=== PATIENT | female | born 1950 | race Caucasian/White ===

== ENCOUNTER 2024-08-03 21:07 | Inpatient (IN) | payer MEDICARE, OTHER ==
[~2024-08-03] VITALS: Ht 152.4 cm; Wt 55.8 kg
[2024-08-03 21:28] LABS: BASOPHILS % (AUTO) 0.4 % (0.0-2.0); EOSINOPHILS # (AUTO) 0.1 K/uL (0.0-0.7); EOSINOPHILS % (AUTO) 1.2 % (0.0-7.0); HEMATOCRIT 31.1 % (31.2-41.9); LYMPHOCYTES # (AUTO) 1.2 K/uL (0.8-4.8); LYMPHOCYTES % (AUTO) 18.3 % (20.5-51.5); MEAN CORPUSCULAR HEMOGLOBIN 31.4 uug (24.7-32.8); MEAN CORPUSCULAR HGB CONC 32 g/dL (32.3-35.6); MEAN CORPUSCULAR VOLUME 97.4 fL (75.5-95.3); MONOCYTES # (AUTO) 0.8 K/uL (0.1-1.30); MONOCYTES % (AUTO) 11.5 % (0.0-11.0); NEUTROPHILS # (AUTO) 4.5 K/uL (1.8-8.9); NEUTROPHILS % (AUTO) 68.6 % (38.5-71.5); PLATELET COUNT (AUTO) 299 K/uL (179-408); RED CELL DISTRIBUTION WIDTH 15.7 % (12.3-17.7); WHITE BLOOD COUNT (AUTO) 6.5 K/uL (3.8-11.8)
[2024-08-03 21:29] LABS: DIFFERENTIAL COMMENT 1
[2024-08-03 21:40] LABS: ALANINE AMINOTRANSFERASE 16 U/L (14-59); ALBUMIN 3.3 g/dL (3.4-5.0); ALKALINE PHOSPHATASE 65 U/L (50-136); ASPARTATE AMINOTRANSFERASE 23 U/L (15-37); BILIRUBIN,DIRECT 0.2 mg/dL (0.0-0.2); BILIRUBIN,TOTAL 0.7 mg/dL (0.2-1.0); CALCIUM 9.3 mg/dL (8.5-10.1); CARBON DIOXIDE 17 mmol/L (21-32); CHLORIDE 107 mmol/L (98-107); CREATININE 0.8 mg/dL (0.6-1.3); GLUCOSE 109 mg/dL (74-106); POTASSIUM 3.1 mmol/L (3.5-5.1); SODIUM SERUM 143 mmol/L (136-145); UREA NITROGEN, BLOOD 3 mg/dL (7-18)
[2024-08-03 21:48] LABS: THYROID STIMULATING HORMONE 2.422 mIU/mL (0.358-3.740)
[2024-08-03] MEDS ORDERED: KETOROLAC TROMETHAMINE 15 MG INJ ONE (23:05)
[2024-08-03] MEDS ORDERED: POTASSIUM CHLORIDE 20 MEQ TAB.PRT.SR ONE (23:05)
[2024-08-03] MEDS: KETOROLAC TROMETHAMINE 15 MG INJ IM ONE (23:30)
[2024-08-03] MEDS: POTASSIUM CHLORIDE 20 MEQ TAB.PRT.SR PO ONE (23:30)
[2024-08-04 00:58] LABS: *BILIRUBIN,URIN 2+ (NEGATIVE); *BLOOD, URINE NEGATIVE (NEGATIVE); *CLARITY,URINE CLEAR (CLEAR); *COLOR,URINE YELLOW (YELLOW); *KETONES,URINE 4+ (NEGATIVE); *PROTEIN,URINE NEGATIVE (NEGATIVE); *UROBILINOGEN,URINE 0.2 E.U./dl (NORMAL); LEUKOCYTE ESTERASE ,URINE NEGATIVE (NEGATIVE); NITRITE, URINE NEGATIVE (NEGATIVE); UGLUCOSE NEGATIVE (NEGATIVE)
[2024-08-04] MEDS ORDERED: HYDR-3980 PO (01:04)
[2024-08-04] MEDS ORDERED: ZOLP10TA2 PO (01:04)
[2024-08-04] MEDS ORDERED: ALPR1TAB2 PO (01:04)
[2024-08-04 01:11] LABS: *AMPHETAMINE, URINE NEGATIVE (NEGATIVE); *BARBITURATE, URINE NEGATIVE (NEGATIVE); *BENZODIAZEPINE, URINE POSITIVE (NEGATIVE); *CANNABINOID, URINE NEGATIVE (NEGATIVE); *COCCAINE, URINE NEGATIVE (NEGATIVE); *OPIATE, URINE POSITIVE (NEGATIVE); *PHENCYCLIDINE SCREEN,URINE NEGATIVE (NEGATIVE); FENTANYL, URINE NEGATIVE (NEGATIVE)
[2024-08-04] MEDS: IV NORMAL SALINE 1000 ML BAG IV ONE (01:13)
[2024-08-04] MEDS ORDERED: ALPRAZOLAM 0.5 MG TABLET ONE (02:25)
[2024-08-04] MEDS: ALPRAZOLAM 0.25 MG TABLET PO ONE (02:26)
[2024-08-04] MEDS ORDERED: MAGNESIUM HYDROXIDE 30 ML LIQUID UDC PO PRN (03:30)
[2024-08-04] MEDS ORDERED: TEMAZEPAM 7.5 MG CAPSULE PO PRN (03:30)
[2024-08-04] MEDS ORDERED: LORAZEPAM 0.5 MG TABLET PO PRN (03:30)
[2024-08-04] MEDS ORDERED: MAG HYDROX/AL HYDROX/SIMETH 30 ML LIQUID UDC PO PRN (03:30)
[2024-08-04] MEDS: LORAZEPAM 0.5 MG TABLET PO PRN (04:10)
[2024-08-04 07:47] VITALS: BP 141/58; TEMP 98; O2SAT 100
[2024-08-04] MEDS: ACETAMINOPHEN 325 MG TABLET PO PRN (10:37)
[2024-08-04] MEDS ORDERED: HYDROCODONE/APAP 10-325 MG TABLET PO PRN (13:30)
[2024-08-04] MEDS ORDERED: GABA100C PO (13:51)
[2024-08-04] MEDS ORDERED: GABA300C PO (13:51)
[2024-08-04] MEDS ORDERED: ENOX40DI SQ (13:57)
[2024-08-04] MEDS ORDERED: OMEP20CA15 PO (13:59)
[2024-08-04] MEDS ORDERED: MAGN400O6 PO (13:59)
[2024-08-04] MEDS ORDERED: MAG-55 PO (14:00)
[2024-08-04] MEDS ORDERED: DICL100G31 TP (14:01)
[2024-08-04] MEDS: THIAMINE HCL 100 MG TABLET PO SCH (14:18)
[2024-08-04 15:16] VITALS: BP 114/60; TEMP 98; O2SAT 98
[2024-08-04] MEDS: ALPRAZOLAM 0.5 MG TABLET PO SCH ×2 (15:42→22:50)
[2024-08-04] MEDS: GABAPENTIN 100 MG CAPSULE PO SCH (15:42)
[2024-08-04 20:00] VITALS: BP 136/66; TEMP 98.3; O2SAT 98
[2024-08-05 06:07] LABS: FOLATE (FOLIC ACID), SERUM 6.4 ng/mL (>3.0)
[2024-08-05 07:44] VITALS: BP 102/53; TEMP 98.2; O2SAT 99
[2024-08-05] MEDS ORDERED: THIAMINE HCL 100 MG TABLET PO SCH (09:00)
[2024-08-05] MEDS ORDERED: MAGNESIUM HYDROXIDE 30 ML LIQUID UDC PO PRN (14:00)
[2024-08-05 15:56] VITALS: BP 103/76; TEMP 98.2; O2SAT 100
[2024-08-05] MEDS: TRAMADOL HCL 50 MG TABLET PO PRN (18:23)
[2024-08-05 19:47] VITALS: BP 109/72; TEMP 98.3; O2SAT 100
[2024-08-05] MEDS: MIRTAZAPINE 15 MG TABLET PO SCH (20:24)
[2024-08-05] MEDS: GABAPENTIN 300 MG CAPSULE PO SCH (20:25)
[2024-08-05] MEDS: CHLORDIAZEPOXIDE HCL 25 MG CAPSULE PO PRN (22:09)
[2024-08-06] MEDS: PANTOPRAZOLE SODIUM 40 MG TABLET.DR PO SCH (06:22)
[2024-08-06 08:10] VITALS: BP 141/57; TEMP 98.1; O2SAT 98
[2024-08-06] MEDS ORDERED: Medication Not On Formulary EA (Omeprazole 20 MG) PO SCH (09:00)
[2024-08-06 16:39] VITALS: BP 138/61; TEMP 98; O2SAT 98
[2024-08-06 20:46] VITALS: BP 112/50; TEMP 98; O2SAT 94
[2024-08-06] MEDS: MELATONIN 3 MG TABLET PO SCH (21:09)
[2024-08-07 08:08] VITALS: BP 146/81; TEMP 98; O2SAT 98
[2024-08-07 08:57] VITALS: BP 146/81; TEMP 98; O2SAT 100
[2024-08-07] MEDS: DIVALPROEX 125 MG TABLET.DR PO SCH (16:41)
[2024-08-07 16:57] VITALS: BP 137/84; TEMP 97.9; O2SAT 100
[2024-08-07 19:53] VITALS: BP 123/67; TEMP 98.2; O2SAT 100
[2024-08-08 08:32] VITALS: BP 129/72; TEMP 98.2; O2SAT 99
[2024-08-08 15:45] VITALS: BP 103/48; TEMP 98; O2SAT 94
[2024-08-08 20:56] VITALS: BP 118/80; TEMP 98.3; O2SAT 96
[2024-08-09 08:13] VITALS: BP 124/79; TEMP 97.7; O2SAT 97
[2024-08-09] MEDS: DIVALPROEX 125 MG TABLET.DR PO SCH (12:16)
[2024-08-09] MEDS: ALPRAZOLAM 0.25 MG TABLET PO SCH (12:16)
[2024-08-09 16:15] VITALS: BP 127/58; TEMP 97.9; O2SAT 98
[2024-08-09] MEDS: ALPRAZOLAM 0.5 MG TABLET PO SCH (16:21)
[2024-08-09 19:34] VITALS: BP 131/59; TEMP 97.6; O2SAT 97
[2024-08-10 08:12] VITALS: BP 142/91; TEMP 97.4; O2SAT 99
[2024-08-10 16:08] VITALS: BP 109/57; TEMP 98.1; O2SAT 98
[2024-08-10 16:26] VITALS: BP 109/57; TEMP 98.1; O2SAT 98
[2024-08-10] MEDS: OLANZAPINE 10 MG VIAL IM ONE (17:00)
[2024-08-10 20:00] VITALS: BP 106/60; TEMP 97.9; O2SAT 98
[2024-08-11 08:08] VITALS: BP 112/71; TEMP 98.5; O2SAT 98
[2024-08-11 16:10] VITALS: BP 97/71; TEMP 97.9; O2SAT 98
[2024-08-11] MEDS: DIVALPROEX 250 MG TABLET.DR PO SCH (16:51)
[2024-08-11] MEDS ORDERED: DIVALPROEX 125 MG TABLET.DR PO SCH (17:00)
[2024-08-11] MEDS ORDERED: DIVALPROEX 250 MG TABLET.DR PO SCH (17:00)
[2024-08-11] MEDS: ENSURE ENLIVE (VAN) 240 ML LIQUID PO SCH (17:19)
[2024-08-11 19:56] VITALS: BP 120/55; TEMP 98.9; O2SAT 99
[2024-08-12 08:05] VITALS: BP 136/58; TEMP 98; O2SAT 98
[2024-08-12 15:07] VITALS: BP 119/50; TEMP 98; O2SAT 96
[2024-08-12] MEDS: ALPRAZOLAM 0.25 MG TABLET PO SCH (17:13)
[2024-08-12 19:53] VITALS: BP 127/53; TEMP 98.1; O2SAT 100
[2024-08-13 07:39] VITALS: BP 131/82; TEMP 98; O2SAT 99
[2024-08-13 15:44] VITALS: BP 129/69; TEMP 98; O2SAT 99
[2024-08-13 19:35] VITALS: BP 145/55; TEMP 98.2; O2SAT 97
[2024-08-14 06:50] LABS: BASOPHILS % (AUTO) 0.6 % (0.0-2.0); EOSINOPHILS # (AUTO) 0.3 K/uL (0.0-0.7); EOSINOPHILS % (AUTO) 3.9 % (0.0-7.0); HEMATOCRIT 28.4 % (31.2-41.9); HEMOGLOBIN 9.3 g/dL (10.9-14.3); LYMPHOCYTES # (AUTO) 2.8 K/uL (0.8-4.8); LYMPHOCYTES % (AUTO) 35.5 % (20.5-51.5); MEAN CORPUSCULAR HEMOGLOBIN 31.2 uug (24.7-32.8); MEAN CORPUSCULAR HGB CONC 33 g/dL (32.3-35.6); MEAN CORPUSCULAR VOLUME 95.1 fL (75.5-95.3); MONOCYTES # (AUTO) 1.1 K/uL (0.1-1.30); MONOCYTES % (AUTO) 14.1 % (0.0-11.0); NEUTROPHILS # (AUTO) 3.7 K/uL (1.8-8.9); NEUTROPHILS % (AUTO) 45.9 % (38.5-71.5); PLATELET COUNT (AUTO) 277 K/uL (179-408); RED BLOOD CELL COUNT(AUTO) 2.99 MIL/uL (3.63-4.92); RED CELL DISTRIBUTION WIDTH 15.8 % (12.3-17.7)
[2024-08-14 06:51] LABS: DIFFERENTIAL COMMENT 1
[2024-08-14 06:59] LABS: CALCIUM 8.7 mg/dL (8.5-10.1); CARBON DIOXIDE 26 mmol/L (21-32); CHLORIDE 106 mmol/L (98-107); CREATININE 0.7 mg/dL (0.6-1.3); GLUCOSE 107 mg/dL (74-106); POTASSIUM 3.8 mmol/L (3.5-5.1); SODIUM SERUM 142 mmol/L (136-145); UREA NITROGEN, BLOOD 13 mg/dL (7-18); VALPROIC ACID 48 ug/mL (50-100)
[2024-08-14 08:37] VITALS: BP 98/63; TEMP 98; O2SAT 96
[2024-08-14 15:11] VITALS: BP 136/61; TEMP 98; O2SAT 96
[2024-08-14 19:37] VITALS: BP 112/52; TEMP 98; O2SAT 98
[2024-08-15 08:52] VITALS: BP 93/66; TEMP 98.3; O2SAT 95
[2024-08-15 16:16] VITALS: BP 106/53; TEMP 98; O2SAT 95
[2024-08-16 08:16] VITALS: BP 107/55; TEMP 97.9; O2SAT 98
[2024-08-16 09:34] VITALS: TEMP 97.9
[2024-08-16] MEDS ORDERED: ALPRAZOLAM 0.25 MG TABLET PO SCH (17:00)
== END 2024-08-16 13:45 | DRG 885 ==
LOC: ER 21:12 → GPS 08-04 02:10
PROVIDERS: ADMIT Psychiatry & Neurology Psychosomatic Medicine; ATTEND Nurse Practitioner Acute Care
DX: F39 Unspecified mood [affective] disorder (principal); I69.354 Hemiplegia and hemiparesis following cerebral infarction affecting left non-dominant side; E86.0 Dehydration; G89.4 Chronic pain syndrome; E87.6 Hypokalemia; D63.8 Anemia in other chronic diseases classified elsewhere; M15.9 Polyosteoarthritis, unspecified; F13.10 Sedative, hypnotic or anxiolytic abuse, uncomplicated; F10.10 Alcohol abuse, uncomplicated; R26.89 Other abnormalities of gait and mobility; R41.89 Other symptoms and signs involving cognitive functions and awareness; F41.9 Anxiety disorder, unspecified
CPT/HCPCS: 36415; 70450; 71045; 80164; 82746; 84443; 85025; C1758; J1885; J2358; J3490; J7040